=== PATIENT | female | born 1980 | race Caucasian/White ===

== ENCOUNTER 2016-10-27 18:53 | Emergency (ER) | payer OTHER ==
[~2016-10-27] VITALS: Ht 175.3 cm; Wt 105.9 kg
[~2016-10-27 18:53] MED LIST: ADVAIR 500/501 DISK IH; FLEXERIL10 MG PO; HYCODAN SYRUP480 ML PO; NARCAN4 MG NS; NORCO 5/3251 TABLET PO; XOPENEX1.25 MG/3 IH
[2016-10-27] MEDS ORDERED: NAPROSYN250 MG PO (21:19)
[2016-10-27] MEDS ORDERED: NORCO 5/3251 TABLET PO (21:33)
[2016-10-27 21:43] VITALS: BP 102/55
== END 2016-10-27 21:43 | disposition home or self-care (01) ==
LOC: EME 18:53
DX: S93.401A Sprain of unspecified ligament of right ankle, initial encounter (principal); S20.212A Contusion of left front wall of thorax, initial encounter; S60.221A Contusion of right hand, initial encounter; W18.30XA Fall on same level, unspecified, initial encounter; J44.9 Chronic obstructive pulmonary disease, unspecified; J45.909 Unspecified asthma, uncomplicated; Z96.641 Presence of right artificial hip joint; F17.200 Nicotine dependence, unspecified, uncomplicated
CPT/HCPCS: 71020; 73130; 73610; 99281; 99284

== ENCOUNTER 2016-12-10 08:35 | Emergency (ER) | payer OTHER ==
[~2016-12-10] VITALS: Ht 175.3 cm; Wt 111.7 kg
[~2016-12-10 08:35] MED LIST changes: +NAPROSYN250 MG PO
[2016-12-10] MEDS ORDERED: LAMICTAL100 MG PO (08:49)
[2016-12-10] MEDS ORDERED: LITHIUM CARBON300 M1 PO (08:49)
[2016-12-10] MEDS ORDERED: XANAX1 MG PO (08:50)
[2016-12-10] MEDS ORDERED: PROPRANOLOL HCL10 MG PO (08:50)
[2016-12-10 09:23] LABS: EOSINOPHIL (%) 1.6 % (0-5); EOSINOPHIL COUNT 0.1 K/uL (0-0.3); IMMATURE GRANULOCYTE (%) 0.1 % (0.0-0.7); IMMATURE GRANULOCYTE COUNT 0.1 K/uL; LYMPHOCYTE COUNT 3.4 K/uL (1.0-2.8); MCH 29.6 PG (29.0-34.0); MCHC 34.5 G/DL (30.0-36.0); MCV 85.8 FL (83-99); MEAN PLAT.VOLUME 9.2 uM^3 (9.5-12.4); MONOCYTE (%) 7.8 % (3-12); MONOCYTE COUNT 0.6 K/uL (0-0.8); PLATELET COUNT 316 K/uL (156-360); RBC DIS.WIDTH-CV 13.5 % (11.8-14.6); RBC DIS.WIDTH-SD 41.4 % (39-53); RED BLOOD COUNT 4.43 M/uL (3.80-5.20); WHITE BLOOD COUNT 8.2 K/uL (4.1-10.2)
[2016-12-10 09:32] LABS: CHLORIDE 104 mEq/L (99-109); POTASSIUM 3.7 mEq/L (3.7-5.4); SODIUM 142 mEq/L (136-147)
[2016-12-10 09:34] LABS: GLUCOSE 105 mg/dL (70-99)
[2016-12-10 09:36] LABS: ANION GAP 10 MEQ/L (2-14); TOTAL BILIRUBIN 0.8 mg/dL (0.0-1.0)
[2016-12-10 09:38] LABS: ALKALINE PHOSPHATASE 80 IU/L (3-129); GFR ESTIMATE (CALCULATED) > 59 mL/min/
[2016-12-10 09:39] LABS: UREA NITROGEN (BUN) 10 mg/dL (9-23)
[2016-12-10 09:49] LABS: QUANTITATIVE HCG < 4.0 MIU/ML
[2016-12-10 10:48] LABS: ADD MIUA? YES; BILIRUBIN NEGATIVE; BLOOD NEGATIVE; COLOR AMBER ((YELLOW)); GLUCOSE (STRIP) NEGATIVE; KETONES NEGATIVE; LEUKOCYTES SMALL; NITRITE NEGATIVE; PROTEIN (STRIP) 30; SPECIFIC GRAVITY 1.026 (1.000-1.030)
[2016-12-10 11:01] LABS: BACTERIA RARE /HPF; EPITHELIAL CELLS 1+ /HPF; MUCUS 1+ /LPF; UCUL ADDED? NO; WHITE BLOOD CELLS 0-5 /HPF (0-5)
[2016-12-10] MEDS ORDERED: CLINDAMYCIN HC150 MG PO (12:10)
[2016-12-10 12:16] VITALS: BP 130/80
== END 2016-12-10 12:16 | disposition home or self-care (01) ==
LOC: EME 08:35
PROVIDERS: Physician Assistant
DX: L03.115 Cellulitis of right lower limb (principal); J45.909 Unspecified asthma, uncomplicated; J44.9 Chronic obstructive pulmonary disease, unspecified; F31.9 Bipolar disorder, unspecified; F90.9 Attention-deficit hyperactivity disorder, unspecified type; Z96.641 Presence of right artificial hip joint; F17.200 Nicotine dependence, unspecified, uncomplicated
CPT/HCPCS: 80053; 80178; 81003; 83605; 84702; 85025; 87040; 93971; 99281; 99283

== ENCOUNTER 2017-01-02 10:27 | Emergency (ER) | payer OTHER ==
[~2017-01-02] VITALS: Ht 175.3 cm; Wt 107.9 kg
[~2017-01-02 10:27] MED LIST changes: +CLINDAMYCIN HC150 MG PO; +LAMICTAL100 MG PO; +LITHIUM CARBON300 M1 PO; +PROPRANOLOL HCL10 MG PO; +XANAX1 MG PO
[2017-01-02 13:30] VITALS: BP 125/81
== END 2017-01-02 13:30 | disposition home or self-care (01) ==
LOC: EXP 10:27 → EME 10:27 → EXP 13:30
DX: S63.91XA Sprain of unspecified part of right wrist and hand, initial encounter (principal); W22.8XXA Striking against or struck by other objects, initial encounter; F17.200 Nicotine dependence, unspecified, uncomplicated
CPT/HCPCS: 73130; 99281; 99284